=== PATIENT | male | born 1990 | race African-American/Black ===

== ENCOUNTER 2018-10-05 10:41 | Outpatient (CLI) | payer OTHER ==
--- NOTE | 2018-10-05 12:11 | RAD ---
3 views of the left second finger: 10/05/2018 COMPARISON: None HISTORY: Injury, trauma, pain FINDINGS: There is a fracture involving the distal aspect of the second middle phalanx. The fracture is transversely oriented. No displacement. No evidence for dislocation. IMPRESSION: Nondisplaced transverse fracture involving the distal aspect of the second middle phalanx .
== END 2018-10-05 10:42 | disposition home or self-care (01) ==
LOC: BICRAD 10:41
PROVIDERS: ATTEND Physician Assistant Medical
DX: S69.92XA Unspecified injury of left wrist, hand and finger(s), initial encounter (principal); S62.663A Nondisplaced fracture of distal phalanx of left middle finger, initial encounter for closed fracture

== ENCOUNTER 2018-11-02 16:15 | Outpatient (CLI) | payer OTHER ==
--- NOTE | 2018-11-03 10:17 | MRI ---
MRI LEFT INDEX FINGER PERFORMED WITH AND WITHOUT CONTRAST ENHANCEMENT: HISTORY: Crush injury to finger with fracture of the middle phalanx of the index finger. Concern for osteomye litis. COMPARISON: A plain film examination of 10/05/2018 which does show a nondisplaced transversely oriented fracture through the distal aspect of the middle phalanx. FINDINGS: This fracture line is still evident on this examination and there is marrow edema change and enhancem ent involving the middle phalanx which could just be related to the healing of the fracture. I do no t see gross bony destructive change to definitely suggest a coexistent osteomyelitis. There is enhan cement and soft tissue swelling along the dorsal side of the DIP joint. There is no fluid collection seen. IMPRESSION: Nondisplaced fracture of the distal aspect of the middle phalanx of the second finger. The fracture line is still evident on this examination. There is edema and enhancement of the middle phalanx and some surrounding soft tissue edema change, moreso on the dorsum of the finger. The appearance of enh ancement and edema in the presence of a fracture makes differentiation between osteomyelitis and just normal healing of a fracture difficult. I do not see any obvious destructive type bony change to de finitely suggest the presence of osteomyelitis. This possibility is not excluded, particularly given the soft tissue swelling in this region, which appears more prominent than what would typically be e xpected for a fracture of this age. POS: TPC
== END 2018-11-02 16:16 | disposition home or self-care (01) ==
LOC: SCSMRI 16:15
PROVIDERS: ATTEND Orthopaedic Surgery Hand Surgery
DX: M86.9 Osteomyelitis, unspecified (principal); S62.661A Nondisplaced fracture of distal phalanx of left index finger, initial encounter for closed fracture

== ENCOUNTER 2018-11-10 10:38 | Day surgery (SDC) | payer OTHER ==
[2018-11-09 14:07] VITALS: BMI 30.4
[2018-11-10] MEDS ORDERED: Midazolam HCl 2 mg/2 ml Vial ONE (12:14)
[2018-11-10] MEDS ORDERED: Bupivacaine PF 0.5% 30 ML VIAL ONE (12:22)
[2018-11-10] MEDS ORDERED: Betamet Acet/Betamet Na Ph 30 MG/5 ML VIAL ONE (12:22)
[2018-11-10] MEDS ORDERED: Bacitracin Zinc Ointment 30 gm TUBE ONE (12:23)
[2018-11-10] MEDS ORDERED: Sodium Chloride 0.9% 10 ML ONE ×2 (12:23→12:25)
[2018-11-10] MEDS ORDERED: Thrombin 5000 UNITS/5 ML VIAL ONE (12:23)
[2018-11-10 12:26] LABS: #Eosinphils 0.1 thou/uL (0.0-0.7); #Lymphocytes 2.5 thou/uL (1.20-3.40); #Monocytes 0.8 thou/uL (0.11-0.59); #Neutrophils 2.7 thou/uL (1.40-6.50); %Basophils 0.7 % (0.0-1.0); %Eosinophils 2.1 % (0.0-10.0); %Lymphocytes 40.3 % (21.0-51.0); %Monocytes 12.4 % (0.0-10.0); %Neutrophils 44.6 % (42.0-75.0); Mean Corpuscular HGB CONC 36.7 g/dL (32.0-36.0); Mean Corpuscular Hemoglobin 26.6 pg (27.0-31.0); Mean Corpuscular Volume 72.4 fL (78.0-98.0); Mean Platelet Volume 10.8 fL (7.4-10.4); Platelet Count 130 thou/uL (130-400); Red Blood Cell (RBC) Count 5.62 mill/uL (4.70-6.10); White Blood Cell (WBC) Count 6.1 thou/uL (4.8-10.8)
[2018-11-10 12:27] LABS: MDiff Complete? YES; Microcytosis SLIGHT = 6-15 cells (100X) (0-5/hpf); Platelet Morphology Comment Appears Adequate; Polychromasia SLIGHT = 2-3 cells (100X) (0-2/hpf)
[2018-11-10] MEDS ORDERED: Fentanyl 100 MCG/2 ML VIAL ONE (12:27)
--- NOTE | 2018-11-10 14:59 | RAD ---
EXAM: LEFT FINGER THREE VIEWS: 11/10/18 Three portable fluoroscopic spot images are performed intraoperatively stabilizing a healing fracture of the distal portion of the middle phalanx of the index finger. IMPRESSION: Wire placement stabilizing the middle phalanx of the index finger. There is associated periosteal charly ction with this fracture. POS: OFF
[2018-11-10] MEDS ORDERED: Ketorolac Tromethamine 30 MG/ML VIAL ONE (15:11)
[2018-11-10] MEDS ORDERED: HYDROcodone/Acetaminophen 5/325 mg Tablet ONE (16:09)
--- NOTE | 2018-11-10 21:06 | OP ---
DATE OF PROCEDURE: 11/10/2018 PREOPERATIVE DIAGNOSIS: Osteomyelitis, open fracture, middle third. POSTOPERATIVE DIAGNOSES: No gross osteomyelitis, but exuberant callus and just distal to this, over the joint line, there was a partial laceration of the extensor tendon underneath the actual skin laceration where there was incomplete healing and marked scar formation with deformity. PROCEDURES PERFORMED: 1. Left index finger excision of bone cortex with pathological specimen evaluation. 2. Open arthrotomy, arthrotomy with joint release. 3. Tenolysis, extensor. 4. Repair, zone 1 extensor tendon over the joint. 5. C-arm supervision. ANESTHESIA: General LMA technique augmented by 10 mL of 0.5% Marcaine metacarpophalangeal level block. DESCRIPTION OF PROCEDURE: After successful general endotracheal anesthesia, the patient had the limb prepped and draped. The patient then had time-out done appropriately. We brought the C-arm to the field and found the area of exuberant callus, extended our incision on this making it a modified Chidi incision because the cut included the transverse limb based on the patient's previous laceration. We carried through skin and subcutaneous tissue, saw no abscess formation, and then realized that the patient also had to have the tendon lipped up from the bone to do tenolysis. Doing this, on both sides of the joint with a Clark blade, we were able to separate the tendon from scar from bone. We then used C-arm to help identify area of the fracture of the distal middle phalanx where the bone was mostly exuberant and here we found and removed the callus. We sent this, specimen from the tendon and joint interface to the lab. We then found the portion of the tendon that was stretched, removed the stressed portion, pinned the joint in 5 degrees of hyperextension and passed the K-wire through it. This was very stable construct and included the fracture that had been seen earlier. The patient then had the tendon undergo tenotomy of 2 mm and on placing 5 degrees of hyperextension, this could be repaired running Prolene itself undyed and get excellent apposition held. K-wire was across the joint in frontal and sagittal planes and removed the remainder of excess. The patient then had index finger arthrotomy wounds closed after we released the joint circumferentially, and we were able to close the wound primarily with a 4-0 nylon. The path specimen showed no evidence of neutrophil formation on borderline technique and the patient then left the operating room without evidence of anesthetic or operative complication. Job ID: [id number]
== END 2018-11-10 16:24 | disposition home or self-care (01) ==
LOC: SDC 10:38
PROVIDERS: ATTEND Orthopaedic Surgery Hand Surgery
PROC: 0LM80ZZ Reattachment of Left Hand Tendon, Open Approach (ICD-10-PCS; principal; 2018-11-10)
DX: S62.621A Displaced fracture of middle phalanx of left index finger, initial encounter for closed fracture (principal); M25.742 Osteophyte, left hand; Z79.1 Long term (current) use of non-steroidal anti-inflammatories (NSAID)
CPT/HCPCS: 36415; 76000; 85025; 87070; 87205; 88307; 88331; J0690; J0702; J1885; J2250; J3010; J3490; S0020